=== PATIENT | female | born 1980 | race African-American/Black ===

== ENCOUNTER 2017-01-15 11:35 | Emergency (ER) | payer OTHER ==
[2017-01-15 12:53] LABS: APPEARANCE CLOUDY (CLEAR); BILIRUBIN NEGATIVE (NEGATIVE); COLOR YELLOW (YELLOW); EPITHELIAL CELLS 0-5 /hpf (0-5); GLUCOSE NEGATIVE (NEGATIVE); KETONE NEGATIVE (NEGATIVE); LEUKOCYTE ESTERASE TRACE (NEGATIVE); NITRITE NEGATIVE (NEGATIVE); PROTEIN NEGATIVE (NEGATIVE); RED CELLS - URINE RARE /hpf (0-5); SPECIFIC GRAVITY 1.015 (1.005-1.020); UROBILINOGEN NORMAL (NORMAL); WHITE CELLS - URINE 0-5 /hpf (0-5)
[2017-01-15 12:54] LABS: BACTERIA MODERATE /hpf (NONE SEEN)
[2017-01-15 14:42] LABS: BASOPHILS 0.6 % (0.0-2.0); EOSINOPHILS 1.9 % (0-7); HEMATOCRIT 41.4 % (36.0-48.0); HEMOGLOBIN 13.8 g/dL (12-16); IMMATURE GRANULOCYTES 0.2 % (0-5); LYMPHOCYTES 26.4 % (15-50); MCH 32.1 pg (26.0-34.0); MCHC 33.3 g/dL (31.0-37.0); MCV 96.3 fL (80.0-100.0); MEAN PLATELET VOLUME 10.8 fL (7.4-10.4); MONOCYTES 7.6 % (2-11); NEUTROPHILS 63.3 % (40-80); PLATELET COUNT 330 10x3/uL (130-400); WBC 8.3 10x3/uL (4.8-10.8)
[2017-01-15 15:16] LABS: ANION GAP 14.3 mmol/L (8-16); BILIRUBIN - TOTAL 0.6 mg/dL (0.2-1.3); CALCIUM 8.8 mg/dL (8.5-10.1); CREATININE - SERUM 1.1 mg/dL (0.6-1.3); POTASSIUM - SERUM 4.3 mmol/L (3.5-5.1); PROTEIN - SERUM 7.2 g/dL (6.4-8.2)
[2017-01-15 16:23] LABS: HCG SERUM NEGATIVE (NEGATIVE)
== END 2017-01-15 16:06 | disposition home or self-care (01) ==
LOC: D.ER 11:35
PROVIDERS: Emergency Medicine Emergency Medical Services; Physician Assistant
DX: M54.5 Low back pain (principal); R10.9 Unspecified abdominal pain; I10 Essential (primary) hypertension

== ENCOUNTER → 2017-01-15 | Emergency (ER) | payer OTHER | END | disposition home or self-care (01) | LOC: D.ER 13:30 | DX: Z02.9 Encounter for administrative examinations, unspecified (principal) ==

== ENCOUNTER 2017-01-16 08:21 | Emergency (ER) | payer OTHER | END 2017-01-16 10:45 | disposition left against medical advice (07) | LOC: D.ER 08:21 | DX: M54.5 Low back pain (principal) ==

== ENCOUNTER → 2017-01-24 09:36 | Outpatient (CLI) | payer OTHER | END | disposition home or self-care (01) | LOC: D.US 09:36 | DX: N28.1 Cyst of kidney, acquired (principal) ==

== ENCOUNTER 2017-04-29 20:40 | Inpatient (IN) | payer OTHER ==
[~2017-04-29] VITALS: Ht 175.3 cm; Wt 90.2 kg
[2017-04-29 21:07] LABS: BASOPHILS 0.3 % (0-2); EOSINOPHILS 1.4 % (0-7); HEMATOCRIT 38.4 % (36.0-48.0); IMMATURE GRANULOCYTES 0.1 % (0-5); LYMPHOCYTES 37.1 % (15-50); MCH 32.5 pg (26.0-34.0); MCHC 33.9 g/dL (31.0-37.0); MEAN PLATELET VOLUME 10.6 fL (7.4-10.4); MONOCYTES 7.5 % (2-11); NEUTROPHILS 53.6 % (40-80); PLATELET COUNT 283 10x3/uL (130-400); RDW 12.4 % (11.5-14.5); WBC 7.6 10x3/uL (4.8-10.8)
[2017-04-29 21:21] LABS: ALBUMIN 3.5 g/dL (3.4-5.0); ALKALINE PHOSPHATASE 67 U/L (46-116); ALT (SGPT) 25 U/L (10-68); BILIRUBIN - TOTAL 0.78 mg/dL (0.2-1.3); CALC OSMOLALITY 280 mosm/kg (275-300); CALCIUM 8.9 mg/dL (8.5-10.1); CARBON DIOXIDE 23.3 mmol/L (21.0-32.0); CHLORIDE - SERUM 105 mmol/L (98-107); CREATININE - SERUM 1.3 mg/dL (0.6-1.3); GLUCOSE 117 mg/dL (74-106); PROTEIN - SERUM 6.8 g/dL (6.4-8.2); SODIUM 139 mmol/L (136-145); UREA NITROGEN 18 mg/dL (7-18); eGFR NON AFRICAN AMERICAN 49 mL/min (90-120)
[2017-04-29 21:29] LABS: POTASSIUM - SERUM 2.9 mmol/L (3.5-5.1); PRO BNP 270 pg/mL (0-125); TROPONIN-I < 0.017 ng/mL (0.000-0.060)
[2017-04-29 22:11] LABS: CKMB 0.3 U/L (0.0-3.6)
[2017-04-29] MEDS ORDERED: LISINOPRIL-HCTZ1 T13 PO (23:09)
[2017-04-29 23:12] VITALS: BP 134/85; Ht 175.3 cm; Wt 90.2 kg
[2017-04-30] VITALS: BP 134/85
--- NOTE | 2017-04-30 02:02 | NUR ---
PT RESTING WELL WITH EYES CLOSED, CONT TO MONITOR.
--- NOTE | 2017-04-30 03:00 | NUR ---
PT C/O CP, STATES THE PAIN PILL DID NOTHING FOR THE PAIN. NOTIFIED TREE PLANTER NEED ORDER FOR SOMETHING ELSE. SHE STATED SHE WILL GET IN TOUCH WITH ER DOC.
--- NOTE | 2017-04-30 03:25 | NUR ---
ER DOC ORDERED NITRO SUBLING TO BE GIVEN FOR C/O CP. PT REFUSES, GETS VERY UPSET. STATES "IT GIVES ME A HEADACHE, WHY CAN'T THEY JUST GIVE ME THE SHOT THEY GAVE ME IN ER?" EXPLAINED RATIONALE FOR USE AND HAD TO TRY NITRO BEFORE MOVING TO MORPHINE. PT REFUSES, STATES TO GET AMA PAPER TO SIGN HERSELF OUT. SAYS SHE ISN'T GONNA LAY HERE HURTING.
--- NOTE | 2017-04-30 03:30 | NUR ---
OFFERED PT A HYDROCODONE TO TAKE WITH THE NITRO TO HELP WITH S/S HEADACHE. PT AGREES AND DECLINES LEAVING AMA AT THIS TIME.
[2017-04-30 04:00] VITALS: BP 155/89
[2017-04-30 05:52] LABS: BASOPHILS 0.5 % (0-2); EOSINOPHILS 3.4 % (0-7); HEMATOCRIT 37.5 % (36.0-48.0); HEMOGLOBIN 12.3 g/dL (12-16); IMMATURE GRANULOCYTES 0.3 % (0-5); LYMPHOCYTES 33.8 % (15-50); MCH 31.9 pg (26.0-34.0); MCHC 32.8 g/dL (31.0-37.0); MCV 97.4 fL (80.0-100.0); MONOCYTES 9.5 % (2-11); NEUTROPHILS 52.5 % (40-80); PLATELET COUNT 289 10x3/uL (130-400); RBC 3.85 10x6/uL (4.00-5.40); RDW 12.4 % (11.5-14.5)
[2017-04-30 06:17] LABS: CALCIUM 8.4 mg/dL (8.5-10.1); CREATININE - SERUM 1.2 mg/dL (0.6-1.3)
[2017-04-30 06:18] LABS: ANION GAP 9.3 mmol/L (8-16); CARBON DIOXIDE 30.4 mmol/L (21.0-32.0); POTASSIUM - SERUM 3.7 mmol/L (3.5-5.1)
[2017-04-30 08:00] VITALS: BP 125/86
--- NOTE | 2017-04-30 10:14 | NUR ---
REFUSES TO WAIT FOR DOCTOR. IV AND TELEMETRY DCD. AMA FORM SIGNED. CHRISTOPHER KWON NOTIFED.
== END 2017-04-30 10:15 | disposition left against medical advice (07) | DRG 313 ==
LOC: D.ER 20:40 → D.M2 22:43
PROVIDERS: Family Medicine; Nurse Practitioner Family; ADMIT Family Medicine
DX: R07.89 Other chest pain (principal); I10 Essential (primary) hypertension; J32.9 Chronic sinusitis, unspecified; F17.200 Nicotine dependence, unspecified, uncomplicated

== ENCOUNTER 2017-06-22 10:34 | Emergency (ER) | payer OTHER ==
[2017-04-29 23:12] VITALS: BMI 29.3
[~2017-06-22 10:34] MED LIST: LISINOPRIL-HCTZ1 T13 PO
== END 2017-06-22 11:24 | disposition home or self-care (01) ==
LOC: D.ER 10:34
DX: J06.9 Acute upper respiratory infection, unspecified (principal); J20.9 Acute bronchitis, unspecified; I10 Essential (primary) hypertension; F17.200 Nicotine dependence, unspecified, uncomplicated; R09.89 Other specified symptoms and signs involving the circulatory and respiratory systems; R05 Cough

== ENCOUNTER 2018-10-08 11:48 | Observation (INO) | payer MEDICAID ==
[~2018-10-08] VITALS: Ht 175.3 cm; Wt 76.4 kg
--- NOTE | ~2018-10-08 | EC ---
PATIENT:JADON ARAUJO V DATE OF SERVICE: 10/08/18 SEX: F MEDICAL RECORD: [id number] DATE OF : [birth year] LOCATION:D. D.211 AGE OF PATIENT: 37 ADMISSION DATE: 10/08/18 REFERRING PHYSICIAN: INTERPRETING PHYSICIAN: RAÚL SMITH MD ECHOCARDIOGRAM REPORT ECHO CHARGES 4 ECHO COMPLETE Date: 10/09/18 CLINICAL DIAGNOSIS: CHF ECHOCARDIOGRAPHIC MEASUREMENTS (adult normal given) AC root (d.<3.7cm) 3.6 cm LV Septum d (<1.2 cm> 1.1 cm Valve Excursion 2.3 cm LV Septum (systole) 1.5 cm Left Atria (s.<4.0cm> 3.6 cm LVPW d(<1.2cm) 0.7 cm RV (d.<2.3cm) 2.8 cm LVPW (sytole) 0.8 cm LV diastole(<5.6CM) 6.4 cm MV E-F(>70mm/sec) cm LV systole 5.4 cm LVOT Diameter 2.4 cm MV exc.(>10mm) cm Est.ejection fraction (50-75%) % DOPPLER: LVIT cm/sec A 47 cm/sec E 37 cm/sec LA cm/sec RVSP 25.2 mmHg LVOT 80 cm/sec AOP1/2T m/s Asc. Ao 125 cm/sec RVOT 54 cm/sec RA cm/sec PA 87 cm/sec AV Gradient Peak 6.3 mmHg AV Mean 3.7 mmHg AV Area 2.9 cm MV Gradient Peak 1.3 mmHg MV Mean 0.5 mmHg MV Area cm COMMENTS: Senior C Software Developer: Leonel KHANJB YADI Welt Slasher: 1 Dr. Smith TAPE# PACS Pericardial Effusion N DATE OF SERVICE: 10/09/2018 PROCEDURE: Echocardiogram. FINDINGS: 1. Left ventricular chamber size is within normal limits. Left ventricular systolic function is normal. Overall ejection fraction estimated at 55% to 60%. 2. Left atrium, right atrium, and right ventricle chamber sizes are within normal limits. 3. Valvular structures have normal structure and motion. ECHOCARDIOGRAM REPORT [id number] [place] 4. Doppler interrogation reveals only mild tricuspid regurgitation, no other valvular insufficiency or stenosis. Pulmonary systolic pressure is normal estimated at 25 mmHg. 5. No evidence of pericardial effusion or left ventricular thrombus. TRANSINT:[id number] Voice Confirmation ID: [id number] DOCUMENT ID: [id number] RAÚL SMITH MD at 1856 CC: [id number] DICTATION DATE: 10/09/18 1232 CALL SPECIALIST: 10/09/18 1245 DIS IN 10/11/18 [place] [id number] [place] [id number]
--- NOTE | ~2018-10-08 | OP ---
PATIENT NAME: JADON ARAUJO V MEDICAL RECORD: [id number] :82 LOCATION:D.M2 D.2119 ADMISSION DATE:10/08/18 SURGEON: MIREYA WOOD MD DATE OF OPERATION: 10/08/2018 PREOPERATIVE DIAGNOSES: 1. Gallstones. 2. Tobacco dependence syndrome. 3. Hypertension. POSTOPERATIVE DIAGNOSES: 1. Gallstones. 2. Tobacco dependence syndrome. 3. Hypertension. PROCEDURE: Laparoscopic cholecystectomy. SURGEON: Mireya Wood MD REPORT OF PROCEDURE: The patient's abdomen was prepped and draped in sterile fashion. A cutdown was made on the superior aspect of the umbilicus. Vicryls #0 were placed in the fascia bilaterally and the fascia was incised with #15 blade. I then bluntly entered the peritoneal cavity and placed a 12-mm Bassam port. Under direct visualization, a 5-mm trocar was placed in the epigastrium and two more 5-mm trocars were placed in the right subcostal region. The gallbladder was grasped and elevated. The cystic artery and cystic duct were dissected free and these were clipped proximally and distally and ligated in standard fashion. The gallbladder had lot of inflammatory adhesions present around it and these were all teased down with blunt dissection. The gallbladder was then taken off the liver bed using electrocautery and placed into the right upper quadrant. Any bleeding from the liver bed was then treated with electrocautery. At this point, the ports and insufflation were then removed and the gallbladder was taken out through the umbilicus. The umbilical fascia was closed with interrupted #0 Vicryls times 3. The wounds were then irrigated out with normal saline and infused with 10 mL of 0.25% Marcaine with epinephrine. The skin incisions were then closed with running subcutaneous 5-0 Monocryl and dressed appropriately. COMPLICATIONS: None. CONDITION: Stable. ANESTHESIA: General endotracheal and local. BLOOD LOSS: Minimal. TRANSINT:[id number] Voice Confirmation ID: [id number] DOCUMENT ID: [id number] OPERATIVE REPORT [id number] JADON ARAUJO V MIREYA WOOD MD CC: [id number] DICTATION DATE: 10/10/18 1522 HOME INSURANCE AGENT: 10/10/18 1639 ADM IN [place] [id number] [place] [address]
--- NOTE | ~2018-10-08 | MORECARE ---
CASE MANAGEMENT DISCHARGE SUMMARY PATIENT: JADON ARAUJO V UNIT: [id number] ADM DATE: 10/08/18 AGE: 37 : [birth year] SEX: F ROOM/BED: D.2116 AUTHOR: MALAIKA MONZON PHYSICIAN: REFERRING PHYSICIAN: TANNER TIERNEY MD DATE OF SERVICE: 10/11/18 Discharge Plan Patient Name: JADON [facility]RAUJO [facility] [facility] 1980 Planned Disposition: Home Anticipated Discharge Date: 10/11/18 Discharge Date: 10/11/2018 Expected LOS: 3 Initial Reviewer: [email or web address] Initial Review Date: 10/11/2018 Generated: 10/11/18 6:30 pm Patient Name: JADON ARAUJO Page [id number] at 1730 All edits/amendments must be made on the electronic document DICTATION DATE: 10/11/181728 ARCHIVAL STUDIES PROFESSOR: NAVARRO 10/11/181728 RPT#: [id number] DC DATE:10/11/18 STATUS: DIS IN [facility] [address] [place] [address] END OF REPORT
[2018-10-08 11:00] VITALS: BP 124/78
[2018-10-08] MEDS ORDERED: XARELTO20 MG PO (12:00)
[2018-10-08] MEDS ORDERED: COREG 3.1253.125 MG PO (12:00)
[2018-10-08 12:28] LABS: BASOPHILS 0.4 % (0-2); EOSINOPHILS 3.8 % (0-7); HEMATOCRIT 40.3 % (36.0-48.0); HEMOGLOBIN 13.2 g/dL (12-16); IMMATURE GRANULOCYTES 0.1 % (0-5); LYMPHOCYTES 27.8 % (15-50); MCH 31.7 pg (26.0-34.0); MCHC 32.8 g/dL (31.0-37.0); MCV 96.6 fL (80.0-100.0); MEAN PLATELET VOLUME 11.1 fL (7.4-10.4); MONOCYTES 12.2 % (2-11); NEUTROPHILS 55.7 % (40-80); PLATELET COUNT 327 10x3/uL (130-400); RBC 4.17 10x6/uL (4.00-5.40); WBC 7.8 10x3/uL (4.8-10.8)
[2018-10-08 12:36] LABS: ALBUMIN 3.6 g/dL (3.4-5.0); ALKALINE PHOSPHATASE 75 U/L (46-116); ALT (SGPT) 22 U/L (10-68); BILIRUBIN - TOTAL 0.28 mg/dL (0.2-1.3); CALC OSMOLALITY 285 mosm/kg (275-300); CALCIUM 8.6 mg/dL (8.5-10.1); CARBON DIOXIDE 28.8 mmol/L (21.0-32.0); CHLORIDE - SERUM 108 mmol/L (98-107); CREATININE - SERUM 1.3 mg/dL (0.6-1.3); GLUCOSE 87 mg/dL (74-106); PROTEIN - SERUM 7.4 g/dL (6.4-8.2); SODIUM 144 mmol/L (136-145); UREA NITROGEN 13 mg/dL (7-18); eGFR NON AFRICAN AMERICAN 49 mL/min (90-120)
[2018-10-08 12:45] LABS: APTT 44.4 SECONDS (22.8-39.4); INR 1.83 (0.85-1.17); PROTIME 20.6 SECONDS (11.6-15.0)
[2018-10-08 12:48] LABS: CKMB 0.8 U/L (0.0-3.6); CREATINE KINASE 119 UL (21-215); MAGNESIUM - SERUM 2.1 mg/dL (1.8-2.4); TROPONIN-I < 0.017 ng/mL (0.000-0.060)
[2018-10-08 15:01] LABS: AMYLASE - SERUM 61 U/L (25-115); LIPASE 183 U/L (73-393)
[2018-10-08 16:03] LABS: CKMB 0.9 U/L (0.0-3.6); CREATINE KINASE 105 UL (21-215)
[2018-10-08 16:05] LABS: TROPONIN-I < 0.017 ng/mL (0.000-0.060)
[2018-10-08 21:41] LABS: CKMB 0.7 U/L (0.0-3.6); CREATINE KINASE 79 UL (21-215)
[2018-10-08 21:42] LABS: TROPONIN-I < 0.017 ng/mL (0.000-0.060)
[2018-10-08 22:21] VITALS: BP 102/65
[2018-10-09 00:54] VITALS: BP 119/65
[2018-10-09 04:30] LABS: BASOPHILS 0.6 % (0-2); EOSINOPHILS 4.2 % (0-7); HEMOGLOBIN 12.9 g/dL (12-16); IMMATURE GRANULOCYTES 0.2 % (0-5); LYMPHOCYTES 29.7 % (15-50); MCH 32.1 pg (26.0-34.0); MCHC 33.1 g/dL (31.0-37.0); MEAN PLATELET VOLUME 11.3 fL (7.4-10.4); MONOCYTES 11.7 % (2-11); NEUTROPHILS 53.6 % (40-80); PLATELET COUNT 306 10x3/uL (130-400); RBC 4.02 10x6/uL (4.00-5.40); RDW 12.9 % (11.5-14.5); WBC 6.7 10x3/uL (4.8-10.8)
[2018-10-09 05:05] LABS: ALBUMIN 3.5 g/dL (3.4-5.0); ALKALINE PHOSPHATASE 78 U/L (46-116); BILIRUBIN - TOTAL 0.36 mg/dL (0.2-1.3); CALC OSMOLALITY 280 mosm/kg (275-300); CALCIUM 8.1 mg/dL (8.5-10.1); CARBON DIOXIDE 29.3 mmol/L (21.0-32.0); CHLORIDE - SERUM 105 mmol/L (98-107); CKMB 0.6 U/L (0.0-3.6); CREATINE KINASE 78 UL (21-215); CREATININE - SERUM 1.3 mg/dL (0.6-1.3); GLUCOSE 104 mg/dL (74-106); POTASSIUM - SERUM 3.7 mmol/L (3.5-5.1); PROTEIN - SERUM 6.9 g/dL (6.4-8.2); SODIUM 141 mmol/L (136-145); UREA NITROGEN 13 mg/dL (7-18); eGFR NON AFRICAN AMERICAN 49 mL/min (90-120)
[2018-10-09 05:06] LABS: ALT (SGPT) 45 U/L (10-68); TROPONIN-I < 0.017 ng/mL (0.000-0.060)
[2018-10-09 05:23] VITALS: BP 102/65; BMI 32.7
[2018-10-09 08:31] VITALS: BP 130/68
[2018-10-09 12:00] VITALS: BP 117/66
[2018-10-09 16:03] VITALS: BP 112/68
[2018-10-09 20:00] VITALS: BP 121/63
[2018-10-10 04:00] VITALS: BP 126/57
[2018-10-10 05:55] LABS: BASOPHILS 0.2 % (0-2); EOSINOPHILS 4.1 % (0-7); HEMATOCRIT 38.2 % (36.0-48.0); HEMOGLOBIN 12.4 g/dL (12-16); IMMATURE GRANULOCYTES 0.2 % (0-5); LYMPHOCYTES 33.9 % (15-50); MCH 31.6 pg (26.0-34.0); MCHC 32.5 g/dL (31.0-37.0); MCV 97.4 fL (80.0-100.0); MEAN PLATELET VOLUME 11.1 fL (7.4-10.4); MONOCYTES 8.4 % (2-11); NEUTROPHILS 53.2 % (40-80); PLATELET COUNT 286 10x3/uL (130-400); RBC 3.92 10x6/uL (4.00-5.40); RDW 12.8 % (11.5-14.5); WBC 6.6 10x3/uL (4.8-10.8)
[2018-10-10 06:25] LABS: ALBUMIN 3.1 g/dL (3.4-5.0); ANION GAP 9.5 mmol/L (8-16); BILIRUBIN - TOTAL 0.24 mg/dL (0.2-1.3); CALCIUM 7.7 mg/dL (8.5-10.1); CREATININE - SERUM 1.4 mg/dL (0.6-1.3); MAGNESIUM - SERUM 2.1 mg/dL (1.8-2.4); POTASSIUM - SERUM 3.5 mmol/L (3.5-5.1); PROTEIN - SERUM 6.6 g/dL (6.4-8.2)
[2018-10-10 08:22] VITALS: BP 135/84
[2018-10-10 09:49] LABS: HCG SERUM NEGATIVE (NEGATIVE)
[2018-10-10 12:31] VITALS: Ht 175.3 cm; Wt 76.4 kg
[2018-10-10 13:18] VITALS: BP 137/83
[2018-10-10] MEDS ORDERED: NORCO-10 PO (15:19)
[2018-10-10 16:33] VITALS: BP 127/85
[2018-10-10 21:57] VITALS: BP 150/99
[2018-10-11 01:04] VITALS: BP 147/76
[2018-10-11 04:11] LABS: BASOPHILS 0.2 % (0-2); EOSINOPHILS 0.1 % (0-7); HEMATOCRIT 36.6 % (36.0-48.0); HEMOGLOBIN 11.9 g/dL (12-16); IMMATURE GRANULOCYTES 0.2 % (0-5); LYMPHOCYTES 11.7 % (15-50); MCH 31.4 pg (26.0-34.0); MCHC 32.5 g/dL (31.0-37.0); MCV 96.6 fL (80.0-100.0); MEAN PLATELET VOLUME 10.9 fL (7.4-10.4); MONOCYTES 7.4 % (2-11); NEUTROPHILS 80.4 % (40-80); PLATELET COUNT 302 10x3/uL (130-400); RBC 3.79 10x6/uL (4.00-5.40); RDW 12.5 % (11.5-14.5)
[2018-10-11 04:21] LABS: WBC 11.2 10x3/uL (4.8-10.8)
[2018-10-11 04:52] LABS: ALBUMIN 3.3 g/dL (3.4-5.0); BILIRUBIN - TOTAL 0.45 mg/dL (0.2-1.3); CALCIUM 8.4 mg/dL (8.5-10.1); CARBON DIOXIDE 22.7 mmol/L (21.0-32.0); CREATININE - SERUM 1.2 mg/dL (0.6-1.3); MAGNESIUM - SERUM 2.1 mg/dL (1.8-2.4); PROTEIN - SERUM 6.9 g/dL (6.4-8.2)
[2018-10-11 04:55] LABS: ANION GAP 12.7 mmol/L (8-16); POTASSIUM - SERUM 4.4 mmol/L (3.5-5.1)
[2018-10-11 05:40] VITALS: BP 149/76
[2018-10-11 09:39] VITALS: BP 132/73
[2018-10-11 11:34] VITALS: BP 130/82
[2018-10-14 12:12] LABS: CHLAMYDIA TRACHOMATIS, NAA Negative (Negative)
== END 2018-10-11 13:22 | disposition home or self-care (01) ==
LOC: D.ER 11:48 → OBSVTIME 14:32 → D.EDHOLD 14:32 → D.M2 14:32
PROVIDERS: Emergency Medicine; Family Medicine; Obstetrics & Gynecology; Surgery
DX: K80.20 Calculus of gallbladder without cholecystitis without obstruction (principal); I10 Essential (primary) hypertension; N89.8 Other specified noninflammatory disorders of vagina; F17.200 Nicotine dependence, unspecified, uncomplicated

== ENCOUNTER 2018-12-01 11:14 | Observation (INO) | payer MEDICAID ==
[~2018-12-01] VITALS: Ht 175.3 cm; Wt 959.1 kg
[~2018-12-01 11:14] MED LIST changes: +COREG 3.1253.125 MG PO; +NORCO-10 PO; +XARELTO20 MG PO
[2018-12-01 11:35] VITALS: BP 168/104
[2018-12-01 11:54] LABS: BASOPHILS 0.6 % (0-2); EOSINOPHILS 3.9 % (0-7); HEMATOCRIT 37.2 % (36.0-48.0); HEMOGLOBIN 12.4 g/dL (12-16); IMMATURE GRANULOCYTES 0.1 % (0-5); LYMPHOCYTES 33.3 % (15-50); MCHC 33.3 g/dL (31.0-37.0); MCV 95.9 fL (80.0-100.0); MEAN PLATELET VOLUME 10.9 fL (7.4-10.4); MONOCYTES 10.4 % (2-11); NEUTROPHILS 51.7 % (40-80); PLATELET COUNT 303 10x3/uL (130-400); RBC 3.88 10x6/uL (4.00-5.40); RDW 12.9 % (11.5-14.5); WBC 8.5 10x3/uL (4.8-10.8)
[2018-12-01 12:02] LABS: APTT 30.1 SECONDS (22.8-39.4); INR 1.13 (0.85-1.17)
[2018-12-01 12:03] LABS: D-DIMER-QUANTITATIVE < 0.27 ug/mLFEU (0.20-0.54)
[2018-12-01 12:09] VITALS: BP 146/90
[2018-12-01 12:21] LABS: ALBUMIN 3.1 g/dL (3.4-5.0); ALKALINE PHOSPHATASE 80 U/L (46-116); ALT (SGPT) 37 U/L (10-68); CALC OSMOLALITY 281 mosm/kg (275-300); CARBON DIOXIDE 24.6 mmol/L (21.0-32.0); CHLORIDE - SERUM 107 mmol/L (98-107); CREATININE - SERUM 1.2 mg/dL (0.6-1.3); GLUCOSE 96 mg/dL (74-106); POTASSIUM - SERUM 3.1 mmol/L (3.5-5.1); PROTEIN - SERUM 6.3 g/dL (6.4-8.2); SODIUM 141 mmol/L (136-145); UREA NITROGEN 14 mg/dL (7-18); eGFR NON AFRICAN AMERICAN 54 mL/min (90-120)
[2018-12-01 12:31] LABS: CKMB 0.4 U/L (0.0-3.6)
[2018-12-01 12:33] LABS: DIGOXIN 0.06 ng/mL (0.90-2.00); TROPONIN-I < 0.017 ng/mL (0.000-0.060)
[2018-12-01 16:06] LABS: CREATINE KINASE 106 UL (21-215)
[2018-12-01 16:18] LABS: TROPONIN-I < 0.017 ng/mL (0.000-0.060)
[2018-12-01 17:54] VITALS: BP 146/90; Ht 175.3 cm; Wt 959.1 kg
--- NOTE | 2018-12-02 12:46 | MORECARE ---
CASE MANAGEMENT DISCHARGE SUMMARY PATIENT: JADON MONTESINOS V UNIT: [id number] ADM DATE: 12/01/18 AGE: 37 : [birth year] SEX: F ROOM/BED: D.1264 AUTHOR: MALAIKA MONZON PHYSICIAN: REFERRING PHYSICIAN: MORIS WHEELER MD DATE OF SERVICE: 12/02/18 Discharge Plan Patient Name: JADON MONTESINOS [facility] [facility] 1980 Planned Disposition: Home Anticipated Discharge Date: 12/01/18 Discharge Date: 12/01/2018 Expected LOS: 1 Initial Reviewer: [email or web address] Initial Review Date: 12/02/2018 Generated: 12/02/18 1:46 pm Patient Name: JADON MONTESINOS Page [id number] at 1246 All edits/amendments must be made on the electronic document DICTATION DATE: 12/02/18 1246 SERVICE WRITER: NAVARRO 12/02/18 1246 RPT#: [id number] DC DATE:12/01/18 STATUS: DIS IN [facility] [address] [place] [address] END OF REPORT
== END 2018-12-01 18:37 | disposition home or self-care (01) ==
LOC: D.ER 11:14 → D.M2 14:38 → D.EDHOLD 14:38 → OBSVTIME 15:00 → D.M2 15:22
PROVIDERS: Family Medicine; ADMIT Internal Medicine Nephrology
DX: R07.9 Chest pain, unspecified (principal); R00.8 Other abnormalities of heart beat; I10 Essential (primary) hypertension; E87.6 Hypokalemia; F17.213 Nicotine dependence, cigarettes, with withdrawal

== ENCOUNTER 2019-01-22 12:19 | Emergency (ER) | payer MEDICAID ==
[~2019-01-22] VITALS: Ht 175.3 cm; Wt 93.4 kg
[2019-01-22 12:22] VITALS: BP 133/62; Ht 175.3 cm; Wt 93.4 kg
[2019-01-22 12:58] LABS: BASOPHILS 0.5 % (0-2); EOSINOPHILS 2.3 % (0-7); HEMATOCRIT 39.1 % (36.0-48.0); IMMATURE GRANULOCYTES 0.2 % (0-5); LYMPHOCYTES 31.9 % (15-50); MCH 31.9 pg (26.0-34.0); MCHC 33.2 g/dL (31.0-37.0); MCV 96.1 fL (80.0-100.0); MEAN PLATELET VOLUME 10.9 fL (7.4-10.4); MONOCYTES 7.7 % (2-11); NEUTROPHILS 57.4 % (40-80); PLATELET COUNT 297 10x3/uL (130-400); RBC 4.07 10x6/uL (4.00-5.40); RDW 12.4 % (11.5-14.5)
[2019-01-22 13:15] LABS: ALBUMIN 3.4 g/dL (3.4-5.0); ANION GAP 15.1 mmol/L (8-16); BILIRUBIN - TOTAL 0.32 mg/dL (0.2-1.3); CREATININE - SERUM 1.3 mg/dL (0.6-1.3); POTASSIUM - SERUM 4.1 mmol/L (3.5-5.1); PROTEIN - SERUM 6.8 g/dL (6.4-8.2)
[2019-01-22 13:38] LABS: HCG SERUM NEGATIVE (NEGATIVE)
[2019-01-22 15:20] LABS: APPEARANCE CLEAR (CLEAR); BILIRUBIN NEGATIVE (NEGATIVE); COLOR YELLOW (YELLOW); GLUCOSE NEGATIVE (NEGATIVE); KETONE NEGATIVE (NEGATIVE); NITRITE NEGATIVE (NEGATIVE); PROTEIN NEGATIVE (NEGATIVE); SPECIFIC GRAVITY 1.015 (1.005-1.020); UROBILINOGEN NORMAL (NORMAL)
[2019-01-22] MEDS ORDERED: ZOFRAN ODT4 MG/UDTAB PO (15:26)
[2019-01-22] MEDS ORDERED: PROTONIX20 MG PO (15:26)
== END 2019-01-22 15:39 | disposition home or self-care (01) ==
LOC: D.ER 12:19
PROVIDERS: Family Medicine
DX: K29.70 Gastritis, unspecified, without bleeding (principal); R10.13 Epigastric pain; R74.8 Abnormal levels of other serum enzymes

== ENCOUNTER → 2019-02-28 14:08 | Outpatient (CLI) | payer MEDICAID ==
[2019-01-22 12:22] VITALS: BMI 312.4
[~2019-02-28 14:08] MED LIST changes: +ACETAMINOPHEN500 M1 PO; +CYCLOBENZAPRINE10 MG PO; +IBUPROFEN800 MG PO; +PROTONIX20 MG PO; +ZOFRAN ODT4 MG/UDTAB PO
== END | disposition home or self-care (01) ==
LOC: D.HCCARDIO 14:00
PROVIDERS: ATTEND Internal Medicine Interventional Cardiology
DX: I42.9 Cardiomyopathy, unspecified (principal)

== ENCOUNTER 2019-03-01 05:52 | Emergency (ER) | payer MEDICAID ==
[~2019-03-01] VITALS: Ht 175.3 cm; Wt 95.5 kg
[~2019-03-01 05:52] MED LIST changes: -ACETAMINOPHEN500 M1 PO; -CYCLOBENZAPRINE10 MG PO; -IBUPROFEN800 MG PO
[2019-03-01 05:58] VITALS: Ht 175.3 cm; Wt 95.5 kg
[2019-03-01] MEDS ORDERED: CYCLOBENZAPRINE10 MG PO (07:25)
[2019-03-01] MEDS ORDERED: IBUPROFEN800 MG PO (07:25)
[2019-03-01] MEDS ORDERED: ACETAMINOPHEN500 M1 PO (07:25)
[2019-03-01 07:36] VITALS: BP 143/90
== END 2019-03-01 07:38 | disposition home or self-care (01) ==
LOC: D.ER 05:52
DX: S00.03XA Contusion of scalp, initial encounter (principal); Y04.2XXA Assault by strike against or bumped into by another person, initial encounter; Y93.89 Activity, other specified; Y92.89 Other specified places as the place of occurrence of the external cause

== ENCOUNTER 2019-04-10 06:15 | Emergency (ER) | payer MEDICAID ==
[~2019-04-10] VITALS: Ht 175.3 cm; Wt 90.0 kg
[~2019-04-10 06:15] MED LIST changes: +ACETAMINOPHEN500 M1 PO; +CYCLOBENZAPRINE10 MG PO; +IBUPROFEN800 MG PO
[2019-04-10 06:19] VITALS: Ht 175.3 cm; Wt 90.0 kg
[2019-04-10 06:51] LABS: BASOPHILS 0.3 % (0-2); EOSINOPHILS 3.1 % (0-7); HEMATOCRIT 40.4 % (36.0-48.0); HEMOGLOBIN 13.6 g/dL (12-16); IMMATURE GRANULOCYTES 0.1 % (0-5); LYMPHOCYTES 30.4 % (15-50); MCHC 33.7 g/dL (31.0-37.0); MCV 95.1 fL (80.0-100.0); MEAN PLATELET VOLUME 11.2 fL (7.4-10.4); MONOCYTES 16.2 % (2-11); NEUTROPHILS 49.9 % (40-80); PLATELET COUNT 260 10x3/uL (130-400); RBC 4.25 10x6/uL (4.00-5.40); RDW 12.6 % (11.5-14.5); WBC 7.1 10x3/uL (4.8-10.8)
[2019-04-10 07:10] LABS: ALBUMIN 3.6 g/dL (3.4-5.0); ANION GAP 15.2 mmol/L (8-16); BILIRUBIN - TOTAL 0.44 mg/dL (0.2-1.3); CALCIUM 8.1 mg/dL (8.5-10.1); CARBON DIOXIDE 22.5 mmol/L (21.0-32.0); CREATININE - SERUM 1.1 mg/dL (0.6-1.3); POTASSIUM - SERUM 3.7 mmol/L (3.5-5.1); PROTEIN - SERUM 6.8 g/dL (6.4-8.2)
[2019-04-10 07:32] LABS: HCG SERUM NEGATIVE (NEGATIVE)
[2019-04-10 07:33] LABS: AMYLASE - SERUM 45 U/L (25-115); LIPASE 110 U/L (73-393)
[2019-04-10 08:01] LABS: APPEARANCE CLEAR (CLEAR); BACTERIA MODERATE /hpf (NONE SEEN); BILIRUBIN NEGATIVE (NEGATIVE); COLOR YELLOW (YELLOW); EPITHELIAL CELLS 0-5 /hpf (0-5); GLUCOSE NEGATIVE (NEGATIVE); KETONE NEGATIVE (NEGATIVE); MUCUS <1+ /lpf (NONE SEEN); NITRITE NEGATIVE (NEGATIVE); PROTEIN NEGATIVE (NEGATIVE); RED CELLS - URINE 0-5 /hpf (0-5); SPECIFIC GRAVITY 1.015 (1.005-1.020); UROBILINOGEN NORMAL (NORMAL)
[2019-04-10] MEDS ORDERED: FLORASTOR250 MG PO (09:20)
[2019-04-10] MEDS ORDERED: LEVSIN/ANASP0.125 MG PO (09:20)
[2019-04-10] MEDS ORDERED: ZANTAC300 MG PO (09:24)
[2019-04-10] MEDS ORDERED: ZOFRAN ODT4 MG/UDTAB PO (09:24)
[2019-04-10 11:56] VITALS: BP 130/68
== END 2019-04-10 11:29 | disposition home or self-care (01) ==
LOC: D.ER 06:15
PROVIDERS: Family Medicine
DX: R10.9 Unspecified abdominal pain (principal); R51 Headache; R11.2 Nausea with vomiting, unspecified; R19.7 Diarrhea, unspecified

== ENCOUNTER 2019-04-24 12:08 | Emergency (ER) | payer MEDICAID ==
[~2019-04-24] VITALS: Ht 175.3 cm; Wt 90.0 kg
[~2019-04-24 12:08] MED LIST changes: +FLORASTOR250 MG PO; +LEVSIN/ANASP0.125 MG PO; +ZANTAC300 MG PO
[2019-04-24 12:28] VITALS: Ht 175.3 cm; Wt 90.0 kg
[2019-04-24 13:41] LABS: BASOPHILS 0.2 % (0-2); EOSINOPHILS 1.9 % (0-7); HEMATOCRIT 41.3 % (36.0-48.0); HEMOGLOBIN 14.2 g/dL (12-16); IMMATURE GRANULOCYTES 0.1 % (0-5); LYMPHOCYTES 31.6 % (15-50); MCH 32.6 pg (26.0-34.0); MCHC 34.4 g/dL (31.0-37.0); MCV 94.7 fL (80.0-100.0); MEAN PLATELET VOLUME 10.6 fL (7.4-10.4); MONOCYTES 10.9 % (2-11); NEUTROPHILS 55.3 % (40-80); PLATELET COUNT 297 10x3/uL (130-400); RBC 4.36 10x6/uL (4.00-5.40); RDW 12.5 % (11.5-14.5); WBC 8.5 10x3/uL (4.8-10.8)
[2019-04-24 13:53] LABS: ALBUMIN 3.8 g/dL (3.4-5.0); ANION GAP 11.2 mmol/L (8-16); BILIRUBIN - TOTAL 0.61 mg/dL (0.2-1.3); CALCIUM 8.3 mg/dL (8.5-10.1); CARBON DIOXIDE 26.1 mmol/L (21.0-32.0); CREATININE - SERUM 1.1 mg/dL (0.6-1.3); POTASSIUM - SERUM 4.3 mmol/L (3.5-5.1); PROTEIN - SERUM 7.4 g/dL (6.4-8.2)
[2019-04-24] MEDS ORDERED: HYDROCODON-ACE1 EAC2 PO (14:04)
[2019-04-24] MEDS ORDERED: KEFLEX500 MG PO (14:04)
--- NOTE | 2019-04-24 15:05 | NUR ---
DR. YODER NOTIFIED. REVIEWED PT'S BEHAVIOR AND ASSESSMENT RESULTS. PT IS A LOW RISK PER DR. YODER. DR. YODER STATED TO GIVE RESOURCES TO PT AT TIME OF DISCHARGE. NO FURTHER ORDERS AT THIS TIME. RESOURCES REVIEWED WITH PT VERBALIZIED UNDERSTANDING.
[2019-04-24 15:32] VITALS: BP 100/80
== END 2019-04-24 15:17 | disposition home or self-care (01) ==
LOC: D.ER 12:08
PROVIDERS: Emergency Medicine
DX: J01.90 Acute sinusitis, unspecified (principal)

== ENCOUNTER 2019-12-04 15:09 | Emergency (ER) | payer OTHER ==
[~2019-12-04] VITALS: Ht 175.3 cm; Wt 82.3 kg
[~2019-12-04 15:09] MED LIST changes: +HYDROCODON-ACE1 EAC2 PO; +KEFLEX500 MG PO
[2019-12-04 15:40] VITALS: Ht 175.3 cm; Wt 82.3 kg
[2019-12-04 16:23] LABS: BASOPHILS 0.8 % (0-2); EOSINOPHILS 6.3 % (0-7); HEMATOCRIT 37.3 % (36.0-48.0); HEMOGLOBIN 12.1 g/dL (12-16); LYMPHOCYTES 25.8 % (15-50); MCH 32.4 pg (26.0-34.0); MCHC 32.4 g/dL (31.0-37.0); MCV 99.7 fL (80.0-100.0); MEAN PLATELET VOLUME 10.8 fL (7.4-10.4); MONOCYTES 14.8 % (2-11); NEUTROPHILS 52.3 % (40-80); RBC 3.74 10x6/uL (4.00-5.40); WBC 4.7 10x3/uL (4.8-10.8)
[2019-12-04 16:27] LABS: PLATELET COUNT 236 10x3/uL (130-400)
[2019-12-04 16:33] LABS: ANION GAP 7.9 mmol/L (8-16); CALCIUM 8.2 mg/dL (8.5-10.1); CARBON DIOXIDE 31.6 mmol/L (21.0-32.0); CREATININE - SERUM 1.3 mg/dL (0.6-1.3); POTASSIUM - SERUM 3.5 mmol/L (3.5-5.1)
[2019-12-04 16:42] LABS: ALBUMIN 3.5 g/dL (3.4-5.0); BILIRUBIN - TOTAL 0.32 mg/dL (0.2-1.3); PROTEIN - SERUM 6.8 g/dL (6.4-8.2)
[2019-12-04] MEDS ORDERED: TAMIFLU75 MG PO (17:52)
[2019-12-04] MEDS ORDERED: TESSALON PERLE100 MG PO (17:52)
[2019-12-04] MEDS ORDERED: ZOFRAN4 MG PO (17:53)
[2019-12-04 18:18] VITALS: BP 138/72
== END 2019-12-04 18:20 | disposition home or self-care (01) ==
LOC: D.ER 15:09
PROVIDERS: Family Medicine
DX: J10.1 Influenza due to other identified influenza virus with other respiratory manifestations (principal); R51 Headache; Z72.0 Tobacco use; I10 Essential (primary) hypertension; R00.9 Unspecified abnormalities of heart beat

== ENCOUNTER 2020-01-16 06:18 | Emergency (ER) | payer OTHER ==
[~2020-01-16] VITALS: Ht 175.3 cm; Wt 80.3 kg
[~2020-01-16 06:18] MED LIST changes: +TAMIFLU75 MG PO; +TESSALON PERLE100 MG PO; +ZOFRAN4 MG PO
[2020-01-16 06:27] VITALS: Ht 175.3 cm; Wt 80.3 kg
[2020-01-16 06:54] LABS: BASOPHILS 0.5 % (0-2); EOSINOPHILS 4.8 % (0-7); HEMATOCRIT 37.4 % (36.0-48.0); HEMOGLOBIN 12.5 g/dL (12-16); IMMATURE GRANULOCYTES 0.2 % (0-5); LYMPHOCYTES 31.9 % (15-50); MCH 32.5 pg (26.0-34.0); MCHC 33.4 g/dL (31.0-37.0); MCV 97.1 fL (80.0-100.0); MEAN PLATELET VOLUME 10.3 fL (7.4-10.4); MONOCYTES 7.3 % (2-11); NEUTROPHILS 55.3 % (40-80); RBC 3.85 10x6/uL (4.00-5.40); WBC 9.4 10x3/uL (4.8-10.8)
[2020-01-16 07:00] LABS: APTT 31.8 SECONDS (22.8-39.4); PLATELET COUNT 296 10x3/uL (130-400); PROTIME 13.2 SECONDS (11.6-15.0)
[2020-01-16 07:08] LABS: CALC OSMOLALITY 282 mosm/kg (275-300); CALCIUM 8.2 mg/dL (8.5-10.1); CARBON DIOXIDE 24.3 mmol/L (21.0-32.0); CHLORIDE - SERUM 107 mmol/L (98-107); CREATININE - SERUM 1.3 mg/dL (0.6-1.3); POTASSIUM - SERUM 3.6 mmol/L (3.5-5.1); SODIUM 140 mmol/L (136-145); UREA NITROGEN 18 mg/dL (7-18); eGFR NON AFRICAN AMERICAN 48 mL/min (90-120)
[2020-01-16 07:09] LABS: GLUCOSE 128 mg/dL (74-106)
[2020-01-16 07:18] LABS: ALBUMIN 3.2 g/dL (3.4-5.0); ALKALINE PHOSPHATASE 94 U/L (30-120); ALT (SGPT) 22 U/L (10-68); BILIRUBIN - TOTAL 0.54 mg/dL (0.2-1.3); CREATINE KINASE 154 UL (21-215); PROTEIN - SERUM 7.1 g/dL (6.4-8.2)
[2020-01-16 07:20] LABS: TROPONIN-I < 0.017 ng/mL (0.000-0.060)
[2020-01-16] MEDS ORDERED: IBUPROFEN800 MG PO (10:52)
[2020-01-16] MEDS ORDERED: CYCLOBENZAPRINE10 MG PO (10:52)
[2020-01-16] MEDS ORDERED: ACETAMINOPHEN500 M1 PO (10:52)
[2020-01-16 11:41] VITALS: BP 146/79
--- NOTE | 2020-01-19 11:54 | EC ---
PATIENT:JADON MONTESINOS V DATE OF SERVICE: 01/16/20 SEX: F MEDICAL RECORD: [id number] DATE OF : [birth year] LOCATION:D.ER AGE OF PATIENT: 39 ADMISSION DATE: 01/16/20 REFERRING PHYSICIAN: INTERPRETING PHYSICIAN: RAÚL SCHRADER MD ECHOCARDIOGRAM REPORT ECHO CHARGES 4 ECHO COMPLETE Date: 01/16/20 CLINICAL DIAGNOSIS: CP ECHOCARDIOGRAPHIC MEASUREMENTS (adult normal given) AC root (d.<3.7cm) 2.8 cm LV Septum d (<1.2 cm> 1.0 cm Valve Excursion 2.1 cm LV Septum (systole) 1.5 cm Left Atria (s.<4.0cm> 3.8 cm LVPW d(<1.2cm) 0.9 cm RV (d.<2.3cm) 2.8 cm LVPW (sytole) 1.1 cm LV diastole(<5.6CM) 6.1 cm MV E-F(>70mm/sec) cm LV systole 5.4 cm LVOT Diameter 2.0 cm MV exc.(>10mm) cm Est.ejection fraction (50-75%) % DOPPLER: LVIT cm/sec A 66 cm/sec E cm/sec LA cm/sec RVSP 22.3 mmHg LVOT 117 cm/sec AOP1/2T m/s Asc. Ao 212 cm/sec RVOT 71 cm/sec RA cm/sec PA 108 cm/sec AV Gradient Peak 18.0 mmHg AV Mean 9.2 mmHg AV Area 1.9 cm MV Gradient Peak 2.7 mmHg MV Mean 2.0 mmHg MV Area cm COMMENTS: Hydraulic Boom Operator: Leonel GRULLON Global Safety Officer: Sunday Flores TAPE# PACS Pericardial Effusion Y DATE OF SERVICE: FINDINGS: 1. Left ventricular chamber size is within normal limits. Left ventricular systolic function is normal. Overall ejection fraction estimated at 55% to 60%. 2. Left atrium, right atrium, and right ventricular chamber sizes are mildly dilated. 3. Valvular structures have normal structure and motion. 4. Doppler interrogation reveals mild mitral regurgitation, mild tricuspid regurgitation, no other valvular insufficiency or stenosis. ECHOCARDIOGRAM REPORT [id number] JADON MONTESINOS V 5. No evidence of pericardial effusion or left ventricular thrombus. 6. The patient has frequent PVCs during the study. TRANSINT:[id number] Voice Confirmation ID: [id number] DOCUMENT ID: [id number] RAÚL SCHRADER MD at 1154 CC: [id number] DICTATION DATE: 01/16/20 1046 TURRET LATHE SET UP OPERATOR: 01/16/20 1418 DEP ER 01/16/20 [place] [id number] [place] [id number]
== END 2020-01-16 11:13 | disposition home or self-care (01) ==
LOC: D.ER 06:18
PROVIDERS: Emergency Medicine
DX: J06.9 Acute upper respiratory infection, unspecified (principal); R07.89 Other chest pain; M79.18 Myalgia, other site; I10 Essential (primary) hypertension; Z72.0 Tobacco use; K21.9 Gastro-esophageal reflux disease without esophagitis

== ENCOUNTER 2020-03-10 06:31 | Emergency (ER) | payer OTHER ==
[~2020-03-10] VITALS: Ht 175.3 cm; Wt 86.4 kg
[2020-03-10 06:33] VITALS: Ht 175.3 cm; Wt 86.4 kg
[2020-03-10 07:40] LABS: BASOPHILS 0.4 % (0-2); HEMATOCRIT 36.4 % (36.0-48.0); HEMOGLOBIN 11.8 g/dL (12-16); IMMATURE GRANULOCYTES 0.3 % (0-5); MCH 31.9 pg (26.0-34.0); MCHC 32.4 g/dL (31.0-37.0); MCV 98.4 fL (80.0-100.0); MEAN PLATELET VOLUME 10.3 fL (7.4-10.4); MONOCYTES 7.1 % (2-11); NEUTROPHILS 53.2 % (40-80); PLATELET COUNT 293 10x3/uL (130-400); WBC 7.9 10x3/uL (4.8-10.8)
[2020-03-10 07:48] LABS: CALC OSMOLALITY 281 mosm/kg (275-300); CALCIUM 8.1 mg/dL (8.5-10.1); CARBON DIOXIDE 28.3 mmol/L (21.0-32.0); CHLORIDE - SERUM 105 mmol/L (98-107); CREATININE - SERUM 1.2 mg/dL (0.6-1.3); GLUCOSE 105 mg/dL (74-106); HCG SERUM NEGATIVE (NEGATIVE); POTASSIUM - SERUM 3.5 mmol/L (3.5-5.1); SODIUM 140 mmol/L (136-145); UREA NITROGEN 21 mg/dL (7-18); eGFR NON AFRICAN AMERICAN 53 mL/min (90-120)
[2020-03-10 07:49] LABS: APTT 30.8 SECONDS (22.8-39.4); INR 1.01 (0.85-1.17); PROTIME 13.3 SECONDS (11.6-15.0)
[2020-03-10 08:05] LABS: ALBUMIN 3.5 g/dL (3.4-5.0); ALKALINE PHOSPHATASE 93 U/L (30-120); ALT (SGPT) 55 U/L (10-68); BILIRUBIN - TOTAL 0.38 mg/dL (0.2-1.3); CKMB 0.8 U/L (0.0-3.6); CREATINE KINASE 138 UL (21-215); MAGNESIUM - SERUM 2.2 mg/dL (1.8-2.4); PROTEIN - SERUM 6.6 g/dL (6.4-8.2); TROPONIN-I < 0.017 ng/mL (0.000-0.060)
[2020-03-10] MEDS ORDERED: CYCLOBENZAPRINE10 MG PO (09:05)
[2020-03-10] MEDS ORDERED: IBUPROFEN800 MG PO (09:05)
[2020-03-10 09:51] VITALS: BP 133/84
== END 2020-03-10 09:53 | disposition home or self-care (01) ==
LOC: D.ER 06:31
PROVIDERS: Family Medicine
DX: R07.89 Other chest pain (principal); S22.32XA Fracture of one rib, left side, initial encounter for closed fracture; M79.18 Myalgia, other site; T14.8XXA Other injury of unspecified body region, initial encounter; W01.0XXA Fall on same level from slipping, tripping and stumbling without subsequent striking against object, initial encounter; Y93.9 Activity, unspecified; Y92.9 Unspecified place or not applicable; I10 Essential (primary) hypertension; K21.9 Gastro-esophageal reflux disease without esophagitis; Z72.0 Tobacco use

== ENCOUNTER 2020-07-06 16:18 | Emergency (ER) | payer OTHER ==
[~2020-07-06] VITALS: Ht 175.3 cm; Wt 90.0 kg
[2020-07-06 16:50] VITALS: Ht 175.3 cm; Wt 90.0 kg
[2020-07-06 17:37] LABS: BASOPHILS 0.9 % (0-2); EOSINOPHILS 2.4 % (0-7); HEMATOCRIT 37.9 % (36.0-48.0); HEMOGLOBIN 12.4 g/dL (12-16); IMMATURE GRANULOCYTES 0.1 % (0-5); LYMPHOCYTES 29.6 % (15-50); MCH 32.4 pg (26.0-34.0); MCHC 32.7 g/dL (31.0-37.0); MONOCYTES 8.5 % (2-11); NEUTROPHILS 58.5 % (40-80); PLATELET COUNT 289 10x3/uL (130-400); RBC 3.83 10x6/uL (4.00-5.40); RDW 12.2 % (11.5-14.5); WBC 8.5 10x3/uL (4.8-10.8)
[2020-07-06 17:54] LABS: INR 1.02 (0.85-1.17); PROTIME 13.4 SECONDS (11.6-15.0)
[2020-07-06 17:55] LABS: D-DIMER-QUANTITATIVE < 0.27 ug/mLFEU (0.20-0.54)
[2020-07-06 17:56] LABS: CALC OSMOLALITY 281 mosm/kg (275-300); CALCIUM 8.1 mg/dL (8.5-10.1); CHLORIDE - SERUM 107 mmol/L (98-107); CREATININE - SERUM 1.3 mg/dL (0.6-1.3); GLUCOSE 100 mg/dL (74-106); POTASSIUM - SERUM 3.8 mmol/L (3.5-5.1); SODIUM 141 mmol/L (136-145); UREA NITROGEN 15 mg/dL (7-18); eGFR NON AFRICAN AMERICAN 48 mL/min (90-120)
[2020-07-06 18:28] LABS: ALBUMIN 3.4 g/dL (3.4-5.0); ALKALINE PHOSPHATASE 72 U/L (30-120); ALT (SGPT) 30 U/L (10-68); BILIRUBIN - TOTAL 0.41 mg/dL (0.2-1.3); CREATINE KINASE 104 UL (21-215); MAGNESIUM - SERUM 2.2 mg/dL (1.8-2.4); PROTEIN - SERUM 6.7 g/dL (6.4-8.2)
[2020-07-06 18:35] LABS: TROPONIN-I < 0.017 ng/mL (0.000-0.060)
[2020-07-06] MEDS ORDERED: DICLOFENAC SODI50 MG PO (19:24)
[2020-07-06 19:53] VITALS: BP 172/98
== END 2020-07-06 19:55 | disposition home or self-care (01) ==
LOC: D.ER 16:18
PROVIDERS: Family Medicine
DX: S92.911A Unspecified fracture of right toe(s), initial encounter for closed fracture (principal); R00.1 Bradycardia, unspecified; I10 Essential (primary) hypertension; K21.9 Gastro-esophageal reflux disease without esophagitis; W22.8XXA Striking against or struck by other objects, initial encounter; Y93.9 Activity, unspecified; Y92.9 Unspecified place or not applicable